=== PATIENT | male | born 1930 | race Caucasian/White ===

== ENCOUNTER 2017-11-21 12:27 | Emergency (ER) | payer MEDICARE ==
--- NOTE | 2017-11-21 12:46 | UC ---
Respiratory Complaint HPI - HPI Summary HPI Summary: 87 yo male presents accompanied by . Pt is a poor historian, thus provides the majority of the history. 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 Over the last 2 weeks she has been having to have pt wear depends because he is urinating a lot more frequently and will wet himself. Last night pt became "confused" - had to help him around the house and he would forget where he was going. Decreased appetite the last 2 days. Last night says his O2 sat was 88%. She says he has had a mild cough and cold "symptoms" for about a week. PMHx significant for CHF, afib , pacemaker, but no known hx of lung disease. Denies fever, chills, SOB, chest pain, abdominal pain, n/v. - History of Current Complaint Stated Complaint: LOW OXYGEN LEVEL Time Seen by Provider: 11/21/17 12:30 Hx Obtained From: Patient Severity Currently: None Character: Cough: Nonproductive - Allergies/Home Medications Allergies/Adverse Reactions: Allergies Allergy/AdvReac Type Severity Reaction Status Date / Time CONCH AdvReac Severe DIARRHEA, Uncoded 11/21/17 12:39 VOMITING Home Medications: Home Medications Apixaban* [Eliquis*] 5 mg PO DAILY 11/21/17 [History Confirmed 11/21/17] Calcium Carbonate CHEW TAB* [Tums*] 500 mg PO DAILY 11/21/17 [History Confirmed 11/21/17] Cholecalciferol (Vitamin D3) [Vitamin D3] 1,000 unit PO DAILY 11/21/17 [History Confirmed 11/21/17] Furosemide TAB* [Lasix TAB*] 20 mg PO DAILY 11/21/17 [History Confirmed 11/21/17 ] Polyethylene Glycol 3350 [Miralax] 17 gm PO DAILY 11/21/17 [History Confirmed ] Potassium Gluconate [Potassium] 600 mg PO DAILY 11/21/17 [History Confirmed ] Tamsulosin CAP* [Flomax CAP*] 0.4 mg PO DAILY 11/21/17 [History Confirmed ] Triamcinolone 0.025% OINT * 1 applic TOPICAL BID PRN 11/21/17 [History Confirmed 11/21/17] fentaNYL [Duragesic] 50 mcg TD EVERY OTHER DAY 11/21/17 [History Confirmed 11/21] raNITIdine HCl [Zantac 75] 150 mg PO DAILY 11/21/17 [History Confirmed 11/21/17] PMH/Surg Hx/FS Hx/Imm Hx - Additional Past Medical History Additional PMH: BPH Cardiovascular History: Cardiac Disease, Pacemaker/ICD, Atrial Fibrillation - Surgical History Surgical History: Yes Surgery Procedure, Year, and Place: YULI-LAMINECTOMY LOW BACK (1950s), APPENDECTOMY, TONSILLECTOMY, pacer - Family History Known Family History: Positive: Cardiac Disease, Hypertension - Social History Occupation: Retired Lives: With Family Alcohol Use: Rare Substance Use Type: None Type: Cigarettes Amount Used/How Often: Quit 25 years ago, 1 pack/day Length of Time of Smoking/Using Tobacco: 40 years Have You Smoked in the Last Year: No - Immunization History Most Recent Influenza Vaccination: Fall 2012 Most Recent Tetanus Shot: within last 5 years Most Recent Pneumonia Vaccination: Received after 63 Review of Systems Constitutional: Other - Confusion/AMS Skin: Negative Eyes: Negative ENT: Negative Respiratory: Cough Cardiovascular: Negative Gastrointestinal: Negative Genitourinary: Frequency, Urgency Neurovascular: Negative Neurological: Negative Psychological: Negative All Other Systems Reviewed And Are Negative: Yes Physical Exam - Summary Physical Exam Summary: GENERAL: NAD. WDWN. No pain distress. SKIN: No rashes, sores, lesions, or open wounds. HEENT: Head: AT/NC Eyes: EOM intact. Conjunctiva clear without inflammation or discharge. Ears: Hearing grossly normal. TMs intact, no bulging, erythema, or edema. Nose: Nasal mucosa pink and moist. NTTP maxillary and frontal sinus. Throat: Posterior oropharynx without exudates, erythema, or tonsillar enlargement. Uvula midline. NECK: Supple. Nontender. No lymphadenopathy. CHEST: Decreased breath sounds throughout. No accessory muscle use. Breathing comfortably and in no distress. CV: Pulses intact. Brisk cap refill. MSK: FROM B/L UEs and LEs with symmetric strength. NEURO: Alert. Repeats himself often. Difficulty comprehending simple instructions or explanations - turns to for help. [id number] are intact. Gait with normal base. Normal speech. No facial drooping. PSYCH: Age appropriate behavior. Triage Information Reviewed: Yes Respiratory Course/Dx - Course Course Of Treatment: CXR: IMPRESSION: HYPERINFLATION, CONSISTENT WITH COPD. NO ACTIVE CARDIOPULMONARY DISEASE. UA: With trace protein. EKG: Paced rhythm at 75bpm. Afib/flutter. No change from previous in [address] Taylor. On initial presentation pt had an O2% of 87% and was comfortably breathing. He was placed on 2L O2 NC and O2% increased to 96%. Pt felt no different and had no change in mental status. When taken off O2 his % dropped back to 87%. No CT available this afternoon at . Given his AMS without identifiable cause - I strongly advised pt and to go to the ED for further evaluation. I suggested that they go by ambulance, but she and patient refused - she agreed to go and will drive him. - Differential Dx/Diagnosis Provider Diagnoses: Altered mental status. Urinary frequency. Hypoxia Discharge - Sign-Out/Discharge Documenting (check all that apply): Discharge/Admit/Transfer - Discharge Plan Condition: Stable Disposition: HOME Referrals: Lyudmila Chen MD [Primary Care Provider] - Additional Instructions: Please go to the ER for further evaluation of your low oxygen level. At urgent care: You had trace protein in your urine CXR normal EKG stable paced rhythm with no changes compared to previous 2008 - Billing Disposition and Condition Condition: STABLE Disposition: HOME
[2017-11-21 12:54] VITALS: BP 109/69
--- NOTE | 2017-11-21 13:43 | RAD ---
HISTORY: Shortness of breath COMPARISONS: December 13, 2004 VIEWS: 4: Frontal dual-energy and lateral views of the chest. FINDINGS: CARDIOMEDIASTINAL SILHOUETTE: The cardiomediastinal silhouette is normal. AGUSTIN: The agustin are normal. PLEURA: The costophrenic angles are sharp. No pleural abnormalities are noted. LUNG PARENCHYMA: There is hyperinflation with flattening of the diaphragm and expansion of the AP diameter of the chest. ABDOMEN: The upper abdomen is clear. There is no subphrenic gas. BONES AND SOFT TISSUES: There is diffuse osteopenia. There are multiple chronic compression deformities of the thoracic spine. OTHER: A left-sided pacemaker is noted. IMPRESSION: HYPERINFLATION, CONSISTENT WITH COPD. NO ACTIVE CARDIOPULMONARY DISEASE.
== END 2017-11-21 14:40 | disposition home or self-care (01) ==
LOC: UCEAST 12:27
DX: R41.82 Altered mental status, unspecified (principal); R35.0 Frequency of micturition; R09.02 Hypoxemia; N40.0 Benign prostatic hyperplasia without lower urinary tract symptoms; I51.9 Heart disease, unspecified; I48.91 Unspecified atrial fibrillation; Z79.01 Long term (current) use of anticoagulants; Z95.810 Presence of automatic (implantable) cardiac defibrillator; Z87.891 Personal history of nicotine dependence
CPT/HCPCS: 71046; 81003; 93005; 99212; G0463

== ENCOUNTER 2017-11-22 20:02 | Inpatient (IN) | payer MEDICARE ==
[2017-11-22] MEDS ORDERED: NS 0.9% 1000 ML* 1,000 ML IV ONE ×2 (20:09→22:00)
--- NOTE | 2017-11-22 20:30 | RAD ---
Indication: Increased weakness more on LEFT side. Increased shortness of breath when walking. Comparison: December 02, 2013 CT. Technique: Noncontrast CT vertex of skull through foramen magnum. Report: Moderately severe prominence of the cerebral sulci and proportional enlargement of the ventricles. Moderate prominence of the cerebellar fissures. Unremarkable basal cisterns. Perez cisterna magna noted without change or concern. Negative for beach matter white matter obscuration, intra or extra-axial hemorrhage, or mass effect. Unremarkable orbital contents. Negative for calvarial fracture or suspicious focal osseous lesion. Grossly clear visualized paranasal sinuses and mastoid air spaces. Negative for scalp hematoma. IMPRESSION: 1. No acute intracranial process evident. 2. Cerebral and cerebellar involutional change with interval progression compared with the 2013 exam.
[2017-11-22 20:38] LABS: ABS Basophils 0 10^3/ul (0-0.2); ABS Eosinophils 0 10^3/ul (0-0.6); ABS Lymphocytes 0.5 10^3/ul (1.0-4.8); ABS Monocytes 0.7 10^3/ul (0-0.8); ABS Neutrophils 6.9 10^3/ul (1.5-7.7); ABS Nucleated RBC 0 10^3/ul; Eosinophil % 0.1 % (0-6); Hematocrit 36 % (42-52); Hemoglobin 12.4 g/dl (14.0-18.0); Mean Corpuscular HGB Conc 34 g/dl (31-36); Mean Corpuscular Hemoglobin 29 pg (27-31); Mean Corpuscular Volume 86 fL (80-94); Mean Platelet Volume 9.4 um3 (7.4-10.4); Nucleated Red Blood Cells % 0.1; Platelet Count 148 10^3/ul (150-450); Red Blood Count 4.23 10^6/ul (4.0-5.4); Red Cell Distribution Width 15 % (10.5-15); White Blood Count 8.2 10^3/ul (3.5-10.8)
[2017-11-22 20:46] LABS: INR 1.41 (0.77-1.02)
[2017-11-22 20:57] LABS: EGFR Non-African American 74.6 (>60)
--- NOTE | 2017-11-22 21:19 | RAD ---
Indication: Neurological changes, shortness of breath, weakness. Former tobacco use. Cardiac disease. Comparison: November 21, 2017 Technique: Upright AP 2046 hours Report: Patchy airspace consolidation at the RIGHT lung base increased over the exam of one day prior. Diffuse prominence of the interstitial markings. Grossly clear pleural spaces. Negative for pneumothorax. Mild cardiomegaly. RIGHT atrial and RIGHT ventricular level pacemaker leads. Prominent central pulmonary vasculature with peripheral attenuation. IMPRESSION: 1. Stigmata of chronic obstructive pulmonary disease and probable pulmonary arterial hypertension. Basilar honeycombing/interstitial fibrosis evident on January 12, [address] 2. New airspace consolidation at the RIGHT lung base compared with the exam one day prior is suspicious for inflammatory infiltrate.
[2017-11-22] MEDS ORDERED: Levofloxacin 750 MG IVPREMIX(* 750 MG/150 ML BAG IVPB ONE (21:28)
[2017-11-22] MEDS ORDERED: Acetaminophen TAB* 325 MG PO PRN (21:55)
[2017-11-22] MEDS ORDERED: Albuterol 2.5 MG/3 ML NEB.SOL* (0.083%) INH PRN (21:55)
[2017-11-22] MEDS: Apixaban* 5 MG TAB PO SCH (22:36)
[2017-11-22 22:39] LABS: Urine Appearance Clear; Urine Blood 1+ (Negative); Urine Color Yellow; Urine Ketones Negative (Negative); Urine Protein Negative (Negative); Urine Specific Gravity 1.019 (1.010-1.030); Urine Urobilinogen Negative (Negative)
--- NOTE | 2017-11-23 00:06 | ED ---
Tab Gomes Jennifer, scribed for Mateo Sr MD on 11/22/17 at 2104 . Neurological HPI - HPI Summary HPI Summary: The patient is an 87 year old male arriving by EMS with increased weakness over one week. The patient denies chest pain, SOB, headache. He has difficulty following commands in the ED. Patient has hearing aids. LEVEL 5 CAVEAT: HPI LIMITED DUE TO AMS. - History of Current Complaint Chief Complaint: EDWeakness Stated Complaint: WEAKNESS Time Seen by Provider: 11/22/17 20:09 Hx Obtained From: EMS Hx From Patient Unobtainable Due To: Altered Mental Status Onset/Duration: Started weeks ago - one week, Still Present Onset Severity: Mild Current Severity: Mild Pain Intensity: 2 Pain Scale Used: 0-10 Numeric Character: Other: - weakness, difficulty following commands. NEGATIVE: chest pain, SOB, headache Associated Signs and Symptoms: Positive: Weakness. Negative: Headache, Chest Pain, Shortness of Breath - Allergy/Home Medications Allergies/Adverse Reactions: Allergies Allergy/AdvReac Type Severity Reaction Status Date / Time No Known Drug Allergies Allergy See Comment Verified 11/22/17 22:41 CONCH AdvReac Severe DIARRHEA, Uncoded 11/21/17 12:39 VOMITING Home Medications: Home Medications Apixaban* [Eliquis*] 5 mg PO BID 11/22/17 [History Confirmed 11/22/17] Cholecalciferol (Vitamin D3) [Vitamin D3] 1,000 unit PO DAILY 11/22/17 [History Confirmed 11/22/17] Cyanocobalamin TAB* [Vitamin B12 TAB*] 1,000 mcg PO DAILY 11/22/17 [History Confirmed 11/22/17] Erythromycin OPTH OINT* [Erythromycin 0.5% OPTH OINT*] 1 applic BOTH EYES BEDTIME 11/22/17 [History Confirmed 11/22/17] LORazepam TAB(*) [Ativan 0.5 MG TAB (*)] 0.5 mg PO Q6H PRN 11/22/17 [History Confirmed 11/22/17] Polyethylene Glycol 3350* [Miralax*] 17 gm PO DAILY 11/22/17 [History Confirmed 11/22/17] Potassium Chlor TAB* [Klor Con ER TAB*] 20 meq PO DAILY PRN 11/22/17 [History Confirmed 11/22/17] Ranitidine TAB (NF) [Zantac TAB (NF)] 150 mg PO QAM 11/22/17 [History Confirmed 11/22/17] Sertraline* [Zoloft*] 25 mg PO QAM 11/22/17 [History Confirmed 11/22/17] Spironolactone/HCTZ 25-25 MG* [Aldactazide 25-25*] 1 tab PO MOWETHFRSA 11/22/17 [History Confirmed 11/22/17] Triamcinolone 0.1% OINT(NF) [Kenolog 0.1% OINT(NF)] 1 applic TOPICAL BID PRN [History Confirmed 11/22/17] fentaNYL PATCH 50 MCG/HR* [Duragesic PATCH 50 Mcg/Hr*] 50 mcg TRANSDERM EVERY OTHER DAY 11/22/17 [History Confirmed 11/22/17] traZODone TAB* [Desyrel TAB*] 75 mg PO BEDTIME 11/22/17 [History Confirmed 11/22] PMH/Surg Hx/FS Hx/Imm Hx Endocrine/Hematology History: Denies: Hx Diabetes Cardiovascular History: Reports: Hx Congestive Heart Failure, Hx Hypercholesterolemia, Hx Hypertension, Hx Pacemaker/ICD, Other Cardiovascular Problems/Disorders - ,chf,pacer, 3rd degree heart block Respiratory History: Reports: Hx Chronic Obstructive Pulmonary Disease (COPD) GI History: Reports: Hx Gastroesophageal Reflux Disease Musculoskeletal History: Reports: Hx Arthritis, Hx Osteoporosis, Other Musculoskeletal History - osteoporosis , hemilaminectomy Sensory History: Reports: Hx Contacts or Glasses, Hx Hearing Aid Opthamlomology History: Reports: Hx Contacts or Glasses - Cancer History Cancer Type, Location and Year: "skin cancer" on top of head, removed 2013 - Surgical History Surgery Procedure, Year, and Place: YULI-LAMINECTOMY LOW BACK (1950s), APPENDECTOMY, TONSILLECTOMY, pacer Infectious Disease History: No Infectious Disease History: Reports: Hx Hepatitis Denies: Traveled Outside the [place] in Last 30 Days - Family History Known Family History: Positive: Cardiac Disease, Hypertension - Social History Alcohol Use: None Substance Use Type: Reports: None Smoking Status (MU): Former Smoker Type: Cigarettes Amount Used/How Often: Quit 25 years ago, 1 pack/day Length of Time of Smoking/Using Tobacco: 40 years Have You Smoked in the Last Year: No Review of Systems Negative: Chest Pain Negative: Shortness Of Breath Positive: Weakness. Negative: Headache All Other Systems Reviewed And Are Negative: Yes Physical Exam - Summary Physical Exam Summary: Appearance: Well appearing, no pain distress Skin: warm, dry, reflects adequate perfusion Head/face: normal Eyes: EOMI, ALY ENT: Hard of hearing, ears have hearing aids Neck: supple, non-tender Respiratory: CTA, breath sounds present Cardiovascular: Pacemaker in left chest, RRR, pulses symmetrical Abdomen: non-tender, soft Bowel Sounds: present Musculoskeletal: normal, strength/ROM intact Neuro: Required repetitive prompting, little drowsy, left leg weakness with drift, left sided neglect, sensory motor intact, A&Ox3 Triage Information Reviewed: Yes Vital Signs On Initial Exam: Initial Vitals Temp Pulse Resp BP Pulse Ox 99.3 F 120 16 140/98 90 11/22/17 20:17 11/22/17 20:17 11/22/17 20:17 11/22/17 20:17 11/22/17 20:17 Vital Signs Reviewed: Yes Diagnostics - Vital Signs Vital Signs Temp Pulse Resp BP Pulse Ox 11/22/17 20:23 24 140/98 11/22/17 20:20 32 11/22/17 20:17 99.3 F 120 16 140/98 90 - Laboratory Lab Results: Lab Results 11/22/17 11/22/17 11/22/17 Range/Units 20:27 20:27 20:27 WBC 8.2 (3.5-10.8) 10^3/ul RBC 4.23 (4.0-5.4) 10^6/ul Hgb 12.4 L (14.0-18.0) g/dl Hct 36 L (42-52) % MCV 86 (80-94) fL MCH 29 (27-31) pg MCHC 34 (31-36) g/dl RDW 15 (10.5-15) % Plt Count 148 L (150-450) 10^3/ul MPV 9.4 (7.4-10.4) um3 Neut % (Auto) 85.0 H (38-83) % Lymph % (Auto) 6.0 L (25-47) % [place] % (Auto) 8.6 H (0-7) % Eos % (Auto) 0.1 (0-6) % Baso % (Auto) 0.3 (0-2) % Absolute Neuts (auto) 6.9 (1.5-7.7) 10^3/ul Absolute Lymphs (auto) 0.5 L (1.0-4.8) 10^3/ul Absolute Monos (auto) 0.7 (0-0.8) 10^3/ul Absolute Eos (auto) 0 (0-0.6) 10^3/ul Absolute Basos (auto) 0 (0-0.2) 10^3/ul Absolute Nucleated RBC 0 10^3/ul Nucleated RBC % 0.1 INR (Anticoag Therapy) 1.41 H (0.77-1.02) APTT 33.2 (26.0-36.3) seconds Sodium 131 L (139-145) mmol/L Potassium 4.2 (3.5-5.0) mmol/L Chloride 96 L (101-111) mmol/L Carbon Dioxide 29 (22-32) mmol/L Anion Gap 6 (2-11) mmol/L BUN 29 H (6-24) mg/dL Creatinine 0.95 (0.67-1.17) mg/dL Est GFR ( Amer) 96.0 (>60) Est GFR (Non-Af Amer) 74.6 (>60) BUN/Creatinine Ratio 30.5 H (8-20) Glucose 138 H (70-100) mg/dL Lactic Acid (0.5-2.0) mmol/L Calcium 9.0 (8.6-10.3) mg/dL Total Bilirubin 0.70 (0.2-1.0) mg/dL AST 15 (13-39) U/L ALT 12 (7-52) U/L Alkaline Phosphatase 53 (34-104) U/L Troponin I 0.03 (<0.04) ng/mL Total Protein 7.1 (6.4-8.9) g/dL Albumin 3.6 (3.2-5.2) g/dL Globulin 3.5 (2-4) g/dL Albumin/Globulin Ratio 1.0 (1-3) Triglycerides 56 mg/dL Cholesterol 127 mg/dL LDL Cholesterol 61 mg/dL HDL Cholesterol 54.7 mg/dL Blood Type Antibody Screen 11/22/17 11/22/17 Range/Units 20:27 20:27 WBC (3.5-10.8) 10^3/ul RBC (4.0-5.4) 10^6/ul Hgb (14.0-18.0) g/dl Hct (42-52) % MCV (80-94) fL MCH (27-31) pg MCHC (31-36) g/dl RDW (10.5-15) % Plt Count (150-450) 10^3/ul MPV (7.4-10.4) um3 Neut % (Auto) (38-83) % Lymph % (Auto) (25-47) % [place] % (Auto) (0-7) % Eos % (Auto) (0-6) % Baso % (Auto) (0-2) % Absolute Neuts (auto) (1.5-7.7) 10^3/ul Absolute Lymphs (auto) (1.0-4.8) 10^3/ul Absolute Monos (auto) (0-0.8) 10^3/ul Absolute Eos (auto) (0-0.6) 10^3/ul Absolute Basos (auto) (0-0.2) 10^3/ul Absolute Nucleated RBC 10^3/ul Nucleated RBC % INR (Anticoag Therapy) (0.77-1.02) APTT (26.0-36.3) seconds Sodium (139-145) mmol/L Potassium (3.5-5.0) mmol/L Chloride (101-111) mmol/L Carbon Dioxide (22-32) mmol/L Anion Gap (2-11) mmol/L BUN (6-24) mg/dL Creatinine (0.67-1.17) mg/dL Est GFR ( Amer) (>60) Est GFR (Non-Af Amer) (>60) BUN/Creatinine Ratio (8-20) Glucose (70-100) mg/dL Lactic Acid 1.1 (0.5-2.0) mmol/L Calcium (8.6-10.3) mg/dL Total Bilirubin (0.2-1.0) mg/dL AST (13-39) U/L ALT (7-52) U/L Alkaline Phosphatase (34-104) U/L Troponin I (<0.04) ng/mL Total Protein (6.4-8.9) g/dL Albumin (3.2-5.2) g/dL Globulin (2-4) g/dL Albumin/Globulin Ratio (1-3) Triglycerides mg/dL Cholesterol mg/dL LDL Cholesterol mg/dL HDL Cholesterol mg/dL Blood Type Pending Antibody Screen Pending Result Diagrams: 11/22/17 20:27 11/22/17 20:27 Lab Statement: Any lab studies that have been ordered have been reviewed, and results considered in the medical decision making process. - Radiology CXR Xray Interpretation: Positive (See Comments) - 1. Stigmata of chronic obstructive pulmonary disease and probable pulmonary arterial hypertension. Basilar honeycombing/interstitial fibrosis evident on January 12, [address] 2. New airspace consolidation at the RIGHT lung base compared with the exam one day prior is suspicious for inflammatory infiltrate. Dr. Sr has reviewed this report. Radiology Interpretation Completed By: Radiologist - CT Brain CT CT Interpretation: No Acute Changes - 1. No acute intracranial process evident. 2. Cerebral and cerebellar involutional change with interval progression compared with the [address] Sr has reviewed this report. 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-Paretic Hand: Both Correctly Best Gaze (Only Horizontal Eye Movement): Normal Visual Field Testing: No Visual Loss Facial Paresis-Pt to Smile & Close Eyes or Grimace Symmetry: Normal/Symmetrical Motor Function - Right Arm: No Drift-Holds 10 Seconds Motor Function - Left Arm: No Drift-Holds 10 Seconds Motor Function - Right Leg: No Drift-Holds 10 Seconds Motor Function - Left Leg: Drifts LT 10 seconds Limb Ataxia-Must be out of Proportion to Weakness Present: Absent Sensory (Use Pinprick to Test Arms/Legs/Trunk/Face): Normal Best Language (Describe Picture, Name Items): No Aphasia Dysarthria (Read Several Words): Normal Extinction and Inattention: Inattention Total Score: 4 Re-Evaluation - Re-Evaluation First Eval Re-Evaluation Time: 21:39 Change: Unchanged Comment: Upon re-examination, patient has right basilar crackles. He is breathing comfortably. Patient reports no abdominal pain. Course/Dx - Course Course Of Treatment: Patient with multiple vague symptoms. He presented as possible stroke from EMS. He had no definite stroke syndrome but relative generalized weakness. There may be some focality on the left side but really this appears to be something else. He was noted to have crackles on his lung exam. Chest x-ray indicated significant pneumonia is developed over the last day. He did have chest x-ray performed at urgent care yesterday which did not show the infiltrate that he has today. IV Levaquin and fluids were given. His alteration of mental status appears to be related to infection associated delirium rather than any type of stroke syndrome. Hospitalist was contacted and evaluated the patient at the bedside. They will admit for further evaluation and treatment. - Differential Dx Differential Diagnoses Neuro: Positive: Cerebrovascular Accident, Hemorrhage, Hypertension, Hypoxia, Metabolic Abnormality, Metastatic Disease, Transient Ischemic Attack, Other - Infection/sepsis with either pneumonia or UTI - Diagnoses Provider Diagnoses: Right lower lobe pneumonia, Delirium, Generalized weakness - Physician Notifications Discussed Care Of Patient With: Demario Rubin Time Discussed With Above Provider: 21:15 Instructed by Provider To: Admit As Inpatient - Critical Care Time Critical Care Time: 30-74 min - Critical care time of 30 minutes is exclusive of separately billable procedures. Discharge - Sign-Out/Discharge Documenting (check all that apply): Discharge/Admit/Transfer - Discharge Plan Condition: Fair Disposition: ADMITTED TO [facility] - Billing Disposition and Condition Condition: FAIR Disposition: [facility] The documentation as recorded by the Tab pitts Jennifer accurately reflects the service I personally performed and the decisions made by me, Mateo Sr MD.
[2017-11-23] MEDS: Albuterol/Ipratropium NEB.SOL* Albuterol 2.5 MG/Ipratropium 0.5 MG 3 ML INH SCH ×4 (00:11→11:35)
--- NOTE | 2017-11-23 03:35 | HP ---
CC: Dr. Chen * HISTORY AND PHYSICAL: DATE OF ADMISSION: 11/22/17 PRIMARY CARE PROVIDER: Dr. Chen. ATTENDING PHYSICIAN WHILE IN THE HOSPITAL: Elda Carlisle DO * (report dictated by Demario Rubin NP). CHIEF COMPLAINT: 1. Cough. 2. Weakness. 3. Not feeling well. HISTORY OF PRESENTING ILLNESS: Mr. 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 His primary user acceptance tester is Dr. Agarwal. He has a history of BPH and COPD as well. He is coming into our ER today. According to the , she was away for about a week on vacation and when she came back, she came down with a cold about a week ago. She got over, her was exposed and she has noted that over the last week the patient has been having increasing weakness, decreased appetite, not feeling well. He has had a cough that has really not been productive, and he sounded raspy. She was getting concerned because she was noticing that he was having a progressive decline over the last week. He got really bad on Monday and [facility], was evaluated there, and was sent home. She was concerned. She has a pulse oximeter at home as well, it was noted to be 88% but at [facility], she said his oxygen saturations remained in the 90s, and he seemed to be doing better. He did better on Monday. Monday night , he was again pretty weak and lethargic. She was trying to get into Dr. Chen 's office; however, he perked up again until this morning but then again this evening and this afternoon he had decline again and she was getting concerned because he just was not getting better, his appetite was not improving, he was coughing, he was looking to be a little bit short of breath with exertion, and she had the patient brought in. At this point, he is really not able to give much history because of his underlying weakness. He has also been confused as well. He came into our ER today. He was evaluated. There has been no report of chest pain or shortness of breath. No reports of vomiting or diarrhea. No reports of fever. He was evaluated here in our ER. It was noted that he had pneumonia and because of this we were asked to evaluate for admission. PAST MEDICAL HISTORY: Significant for: 1. Peptic ulcer disease. 2. Hepatitis. 3. Osteoarthritis. 4. Osteoporosis. 5. Chronic pain. 6. History of AFib, aflutter. 7. History of CHF. 8. BPH. 9. COPD. 10. He has also had an L1 vertebral fracture. PAST SURGICAL HISTORY: 1. The patient has had a tonsillectomy. 2. He has had an L5-S1 spinal fusion. 3. Pacemaker. 4. Appendectomy. HOME MEDICATIONS: Include: 1. Erythromycin 1 application both eyes at bedtime. 2. Triamcinolone cream 1 application topical b.i.d. as needed. 3. Ativan 0.5 mg every 6 hours as needed. 4. Potassium 20 mEq p.o. daily as needed. 5. Lasix 20 mg p.o. daily as needed. 6. Trazodone 75 mg at bedtime. 7. B12, 1000 mcg p.o. daily. 8. Tums 500 mg daily. 9. Spironolactone/hydrochlorothiazide 1 tablet p.o. Monday, Monday, , Monday, and Monday. 10. Zoloft 25 mg daily. 11. Apixaban 5 mg p.o. b.i.d. 12. Zantac 150 mg p.o. q.a.m. 13. Flomax 0.4 mg p.o. daily. 14. MiraLAX 17 g p.o. daily. 15. Fentanyl patch 50 mcg transdermally every other day. 16. Vitamin D3, 1000 units p.o. daily. ALLERGIES TO MEDICATIONS: Include none. He is allergic to conch. FAMILY HISTORY: Mother had a history of CHF at the age of 99. Father of an ME. SOCIAL HISTORY: Former smoker. Does not drink alcohol. Surrogate decision maker is his , Leonor. REVIEW OF SYSTEMS: Again, there is no documented fever. No significant weight change was noted. No double vision. No ear discharge. There is no rhinorrhea. There is no sore throat. No thyroid enlargement. There is no report of chest pain. There is no orthopnea. There is no nocturnal dyspnea. There is admission to cough, dyspnea on exertion. There was no abdominal pain. There was no nausea, no vomiting. No dysuria, no frequency. No seizure, no loss of consciousness. No pruritus and no skin ulcerations. Review of 14 systems completed, all others were negative. PHYSICAL EXAMINATION GENERAL: At this time, Mr. Wood is an 87-year-old male patient; he appears to be chronically ill appearing. He is sitting in the ED stretcher. He does not appear to be in any acute distress. VITAL SIGNS: Blood pressure 138/76, pulse 75, respirations 14, O2 sat 92% on 2 L, and his temperature is 99.3. HEENT: Head is atraumatic and normocephalic. Eyes: Sclerae are anicteric and not pale. Throat: Oral mucosa appears to be dry. No oropharyngeal erythema. NECK: Supple. LUNGS: He had rhonchi in the right base. He also had some crackles in the left. He had equal diaphragmatic expansion. There was no wheezing. HEART: Sounds S1, S2. He has regular rate and rhythm. No murmurs, rubs, or gallops at this point. ABDOMEN: Soft, flat, nontender. Bowel sounds were present. EXTREMITIES: Pulses were 2+ throughout. No peripheral edema. He is moving all 4 extremities with 5/5 strength. NEUROLOGICAL: It is difficult to exam because he is very hard of hearing. He does awaken to his name. He knows his name. His tongue was midline. His lusterer were equal. He knows he is in the hospital and he knows the month. He had no gross focal deficits. SKIN: Intact. LABORATORY DATA/DIAGNOSTIC STUDIES: Today, WBC of 8.2, RBC of 4.23, hemoglobin 12.4, hematocrit 36, and a platelet count of 148,000. INR 1.41, PTT of 33.2. Sodium 131, potassium 4.2, chloride of 96, bicarb 29, BUN 29, creatinine 0.95, glucose 138, lactate 1.1, calcium 9.0. Total bili 0.7. AST 15 , ALT 12, alk phos 53. Troponin 0.03. BNP 156. Albumin 3.6. Urine is pending. He did have a chest x-ray obtained today, under my review it looks like he has infiltrate in the right base, Radiology read this as stigmata of COPD and probable pulmonary arterial hypertension. Basilar honeycombing, interstitial fibrosis evident on 01/12/[address] He has new airspace consolidation on the right lung base compared with exam 1 day prior. It is suspicious for an inflammatory infiltrate. There was a brain CT obtained today as well, showed no acute intracranial process evident, cerebral and cerebellar involutional change with interval progression compared with the 2014 exam. Also had an EKG obtained today, which did show it looks like aflutter with a paced rhythm at a rate of 60, which he does have a history of, it is reviewed with the previous EKG from 10 years ago, his rhythm then was paced but there was definitely no flutter waves. Old medical records were reviewed. ASSESSMENT AND PLAN: Mr. Wood is an 87-year-old male patient coming into the emergency department today with complaints of cough, not feeling well, and weakness, on evaluation it was felt that he needed to be admitted. He will be admitted under inpatient status for: 1. Pneumonia. At this point, he is not showing signs of sepsis. He is weak, which I think is being driven by the pneumonia. I am going to put him on Levaquin. Because of the history of chronic obstructive pulmonary disease, I am going to go ahead and put him on inhaled steroids. In addition to this, put him on nebulizers, flutter valve, aggressive antibiotic therapy. I will check Legionella and Strep pneumo antigen, aggressive pulmonary toileting. I will also check blood cultures and check his urine as well. Hydrate him with normal saline at 75 mL an hour because of his history of congestive heart failure and I normally would put him on steroids, but at this point I am going to hold off because I am worried about fluid retention and putting him into failure, so we will continue with just inhaled for now. 2. History of congestive heart failure. He does not appear to be in failure, appears to be dry. Hold his Lasix. We will be careful with fluids and diurese him as needed and continue medications as prescribed. I am going to try to get records from Cardiology to see what his EF is. 3. Peptic ulcer disease. Continue his medications as prescribed. 4. History of osteoporosis. Follow up with his primary care physician. 5. History of atrial fibrillation and aflutter. Continue medications as prescribed. At this point, it is stable, rate is at 75. 6. Chronic obstructive pulmonary disease. He will be placed on nebulizes, inhaled steroids, and antibiotics. 7. Benign prostatic hypertrophy. Continue with Flomax. 8. Chronic pain. Continue with fentanyl patch. 9. Arthritis. Again, fentanyl patch is being continued. 10. History of hepatitis C. Follow up with primary. 11. DVT prophylaxis. He is on apixaban. 12. Code status: He wishes to be a DNR. We will try to obtain the MOLST form ; if not, we may need to fill out a new one. 13. Fluids, electrolytes, and nutrition. He can have a heart healthy diet with Ensure t.i.d. TIME SPENT: On the admission was 60 minutes; greater than half the time was spent [id number] with the patient obtaining my history and physical; other half time was spent going over the plan of care with the patient and implementing the plan of care. I did discuss the plan of care with my attending, Dr. Carlisle; she is in agreement. DEMARIO RUBIN, RAYA [id number]/CPS #: [id number] FOSTER
--- NOTE | 2017-11-23 04:09 | PN ---
Hospitalist Progress Note Date of Service: 11/23/17 Cat called placed for hypoxia at 0340 Pt o2 sats 40 percent. On exam put cyanotic, confused, pt responsed to sternal rub immediately. Pt confuse to situation but know name and location and month. Pt denies chest pain or sob. On 10 l oxi mask sats 99 percent, bp 130/70 hr 90. Lungs with rohonchi in lower lobes. 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
[2017-11-23] MEDS ORDERED: Naloxone* 0.4 MG/ML 1 ML VIAL ONE (05:59)
[2017-11-23] MEDS ORDERED: Furosemide IV* 10 MG/ML VIAL (40 MG) ONE (06:02)
[2017-11-23] MEDS ORDERED: Haloperidol INJ IV/IM* 5 MG/ML AMP ONE (06:07)
[2017-11-23 06:09] LABS: ABS Basophils 0 10^3/ul (0-0.2); ABS Eosinophils 0 10^3/ul (0-0.6); ABS Monocytes 0.9 10^3/ul (0-0.8); ABS Neutrophils 8.7 10^3/ul (1.5-7.7); ABS Nucleated RBC 0 10^3/ul; Eosinophil % 0 % (0-6); Hematocrit 37 % (42-52); Hemoglobin 12.1 g/dl (14.0-18.0); Lymphocyte % 9.3 % (25-47); Mean Corpuscular HGB Conc 33 g/dl (31-36); Mean Corpuscular Hemoglobin 29 pg (27-31); Mean Corpuscular Volume 88 fL (80-94); Nucleated Red Blood Cells % 0; Platelet Count 144 10^3/ul (150-450); Red Blood Count 4.16 10^6/ul (4.0-5.4); Red Cell Distribution Width 15 % (10.5-15); White Blood Count 10.6 10^3/ul (3.5-10.8)
[2017-11-23 06:10] LABS: INR 1.78 (0.77-1.02)
[2017-11-23] MEDS ORDERED: Morphine VIAL* 4 MG/ML VIAL (1 ml vial) IV ONE ×3 (06:11→06:35)
[2017-11-23 06:18] LABS: EGFR Non-African American 104.5 (>60)
[2017-11-23] MEDS ORDERED: fentaNYL Patch Check Q Shift 1 NOTE SCH (07:00)
--- NOTE | 2017-11-23 07:27 | PN ---
Hospitalist Progress Note Date of Service: 11/23/17 Cat call placed at 600 this am for decreased AMS. Patient previously awake and alert and talking making needs known after first CAT call. This time patient unresponsive would not awaken to sternal rub at all. Agonal breathing noted. Rhonchi bilaterally. Concern for over sedation with fent patch that patient had on previously. Narcan given .4 mg. Upon receiving narcan patient extremely agitated restless but breathing much improved, patient given haldol and morphine 4 mg back to try and decrease his agitation, patient transferred to ICU, pt given 40 of lasix as well due to increase in rhonchi, breathing improving after this, at 700 patient agitation decreasing, becoming more lucid, updated, signed patient out to oncoming
[2017-11-23] MEDS: Mometasone/Formoter 200/5 MDI INH SCH ×2 (07:52→20:47)
--- NOTE | 2017-11-23 07:59 | RAD ---
INDICATION: Hypoxia. COMPARISON: November 22, 2017 TECHNIQUE: An AP portable view obtained at 0349 hours is submitted. FINDINGS: Bones/Soft Tissues: There are no acute bony findings. There is a right-sided cardiac pacemaker Cardiomediastinal: The correct silhouette is enlarged. Lungs: There is progressive infiltrate in right lung base. There is mild diffuse interstitial change. Pleura: There are small bilateral pleural effusions. Other: None IMPRESSION: CHRONIC INTERSTITIAL CHANGES. THERE MAY BE A COMPONENT OF INTERSTITIAL EDEMA WELL. THERE IS PROGRESSIVE INFILTRATIVE CHANGE IN RIGHT LUNG BASE. SUGGEST CONTINUED FOLLOW-UP.
[2017-11-23] MEDS: Tamsulosin CAP* 0.4 MG PO SCH (08:38)
[2017-11-23] MEDS: Famotidine TAB* 20 MG PO SCH (08:38)
[2017-11-23] MEDS: Polyethylene Glycol 3350* 17 GM PACKET PO SCH (08:38)
[2017-11-23] MEDS: Sertraline* 25 MG TAB PO SCH (08:38)
--- NOTE | 2017-11-23 08:59 | PN ---
Subjective Date of Service: 11/23/17 Interval History: Seen with daughter and at bedside Pt notes non productive cough but no SOB No chest pain No nausea Would like trotter catheter out Objective Active Medications: Acetaminophen (Tylenol Tab*) 650 mg PO Q4H PRN PRN Reason: FEVER/PAIN Albuterol (Ventolin 2.5 Mg/3 Ml Neb.Zoie*) 2.5 mg INH Q2H PRN PRN Reason: SOB/WHEEZING Albuterol/Ipratropium (Duoneb (Albuterol 2.5 Mg/Ipratropium 0.5 Mg)) 1 neb INH [id number] AWAKE [facility] Last Admin: 11/23/17 07:52 Dose: 1 neb Apixaban (Eliquis*) 5 mg PO BID [facility] Last Admin: 11/22/17 22:36 Dose: 5 mg Famotidine (Pepcid Tab*) 20 mg PO QAM [facility] PRN Reason: Protocol Last Admin: 11/23/17 08:38 Dose: 20 mg Ceftriaxone Sodium 1 gm/ (Sodium Chloride) 50 mls @ 200 mls/hr IVPB Q24H [facility] Azithromycin 500 mg/ Sodium (Chloride) 250 mls @ 250 mls/hr IVPB Q24H [facility] Stop: 11/24/17 11:59 Azithromycin 250 mg/ Sodium (Chloride) 250 mls @ 250 mls/hr IVPB Q24H [facility] Stop: 11/27/17 09:59 Mometasone Furoate/Formoterol Fumar (Dulera 200/5 Mdi*) 2 puff INH BID [facility] Last Admin: 11/23/17 07:52 Dose: Not Given Polyethylene Glycol/Electrolytes (Miralax*) 17 gm PO DAILY [facility] Last Admin: 11/23/17 08:38 Dose: 17 gm Sertraline HCl (Zoloft*) 25 mg PO QAM [facility] Last Admin: 11/23/17 08:38 Dose: 25 mg Tamsulosin HCl (Flomax Cap*) 0.4 mg PO DAILY [facility] Last Admin: 11/23/17 08:38 Dose: 0.4 mg Trazodone HCl (Desyrel Tab*) 75 mg PO BEDTIME [facility] Vital Signs - 8 hr 11/23/17 11/23/17 11/23/17 03:32 04:01 04:41 Temperature 97.8 F Pulse Rate 60 75 Respiratory 17 Rate Blood Pressure 139/50 129/60 (mmHg) O2 Sat by Pulse 100 98 91 Oximetry 11/23/17 11/23/17 11/23/17 05:05 05:19 06:11 Temperature 97.4 F Pulse Rate 59 75 Respiratory 19 18 28 Rate Blood Pressure 90/46 116/63 (mmHg) O2 Sat by Pulse 97 97 Oximetry 11/23/17 11/23/17 11/23/17 07:12 07:19 07:56 Temperature Pulse Rate 60 Respiratory 25 20 19 Rate Blood Pressure 96/61 (mmHg) O2 Sat by Pulse 95 Oximetry 11/23/17 11/23/17 08:00 08:36 Temperature 98.4 F Pulse Rate 60 Respiratory 20 Rate Blood Pressure 115/53 (mmHg) O2 Sat by Pulse 97 Oximetry Oxygen Devices in Use Now: Nasal Cannula - 4L Appearance: sitting up in bed, interactive, NAD Eyes: No Scleral Icterus, PERRLA Ears/Nose/Mouth/Throat: Clear Oropharnyx, - - dry MM Respiratory: Symmetrical Chest Expansion and Respiratory Effort, - - rhonchi right base up 1/2 that partially clear with cough Cardiovascular: RRR, - - 2/6 JAKE LUSB and RLSB Extremities: No Edema, No Clubbing, Cyanosis, - - warm Neurological: Alert and Oriented x 3, - - [id number] Result Diagrams: 11/23/17 05:57 11/23/17 05:57 Additional Lab and Data: Lab Results 11/22/17 11/22/17 11/22/17 Range/Units 20:27 20:27 20:27 WBC 8.2 (3.5-10.8) 10^3/ul RBC 4.23 (4.0-5.4) 10^6/ul Hgb 12.4 L (14.0-18.0) g/dl Hct 36 L (42-52) % MCV 86 (80-94) fL MCH 29 (27-31) pg MCHC 34 (31-36) g/dl RDW 15 (10.5-15) % Plt Count 148 L (150-450) 10^3/ul MPV 9.4 (7.4-10.4) um3 Neut % (Auto) 85.0 H (38-83) % Lymph % (Auto) 6.0 L (25-47) % Dickenson % (Auto) 8.6 H (0-7) % Eos % (Auto) 0.1 (0-6) % Baso % (Auto) 0.3 (0-2) % Absolute Neuts (auto) 6.9 (1.5-7.7) 10^3/ul Absolute Lymphs (auto) 0.5 L (1.0-4.8) 10^3/ul Absolute Monos (auto) 0.7 (0-0.8) 10^3/ul Absolute Eos (auto) 0 (0-0.6) 10^3/ul Absolute Basos (auto) 0 (0-0.2) 10^3/ul Absolute Nucleated RBC 0 10^3/ul Nucleated RBC % 0.1 INR (Anticoag Therapy) 1.41 H (0.77-1.02) APTT 33.2 (26.0-36.3) seconds Sodium 131 L (139-145) mmol/L Potassium 4.2 (3.5-5.0) mmol/L Chloride 96 L (101-111) mmol/L Carbon Dioxide 29 (22-32) mmol/L Anion Gap 6 (2-11) mmol/L BUN 29 H (6-24) mg/dL Creatinine 0.95 (0.67-1.17) mg/dL Est GFR ( Amer) 96.0 (>60) Est GFR (Non-Af Amer) 74.6 (>60) BUN/Creatinine Ratio 30.5 H (8-20) Glucose 138 H (70-100) mg/dL Lactic Acid (0.5-2.0) mmol/L Calcium 9.0 (8.6-10.3) mg/dL Total Bilirubin 0.70 (0.2-1.0) mg/dL AST 15 (13-39) U/L ALT 12 (7-52) U/L Alkaline Phosphatase 53 (34-104) U/L Troponin I 0.03 (<0.04) ng/mL Total Protein 7.1 (6.4-8.9) g/dL Albumin 3.6 (3.2-5.2) g/dL Globulin 3.5 (2-4) g/dL Albumin/Globulin Ratio 1.0 (1-3) Triglycerides 56 mg/dL Cholesterol 127 mg/dL LDL Cholesterol 61 mg/dL HDL Cholesterol 54.7 mg/dL Blood Type Antibody Screen 11/22/17 11/22/17 Range/Units 20:27 20:27 WBC (3.5-10.8) 10^3/ul RBC (4.0-5.4) 10^6/ul Hgb (14.0-18.0) g/dl Hct (42-52) % MCV (80-94) fL MCH (27-31) pg MCHC (31-36) g/dl RDW (10.5-15) % Plt Count (150-450) 10^3/ul MPV (7.4-10.4) um3 Neut % (Auto) (38-83) % Lymph % (Auto) (25-47) % Dickenson % (Auto) (0-7) % Eos % (Auto) (0-6) % Baso % (Auto) (0-2) % Absolute Neuts (auto) (1.5-7.7) 10^3/ul Absolute Lymphs (auto) (1.0-4.8) 10^3/ul Absolute Monos (auto) (0-0.8) 10^3/ul Absolute Eos (auto) (0-0.6) 10^3/ul Absolute Basos (auto) (0-0.2) 10^3/ul Absolute Nucleated RBC 10^3/ul Nucleated RBC % INR (Anticoag Therapy) (0.77-1.02) APTT (26.0-36.3) seconds Sodium (139-145) mmol/L Potassium (3.5-5.0) mmol/L Chloride (101-111) mmol/L Carbon Dioxide (22-32) mmol/L Anion Gap (2-11) mmol/L BUN (6-24) mg/dL Creatinine (0.67-1.17) mg/dL Est GFR ( Amer) (>60) Est GFR (Non-Af Amer) (>60) BUN/Creatinine Ratio (8-20) Glucose (70-100) mg/dL Lactic Acid 1.1 (0.5-2.0) mmol/L Calcium (8.6-10.3) mg/dL Total Bilirubin (0.2-1.0) mg/dL AST (13-39) U/L ALT (7-52) U/L Alkaline Phosphatase (34-104) U/L Troponin I (<0.04) ng/mL Total Protein (6.4-8.9) g/dL Albumin (3.2-5.2) g/dL Globulin (2-4) g/dL Albumin/Globulin Ratio (1-3) Triglycerides mg/dL Cholesterol mg/dL LDL Cholesterol mg/dL HDL Cholesterol mg/dL Blood Type Pending Antibody Screen Pending Microbiology and Other Data: Microbiology 11/22/17 22:18 Legionella Urinary Antigen - Final Urine Negative Legionella Antigen Streptococcus pneumoniae Ag Screen - Final Negative S. pneumo Antigen Assess/Plan/Problems-Billing Assessment: 87 yo M h/o afib on eliquis, chronic LBP on fentanyl patch, combine CHF p/w cough/weakness found with RLL PNA with first night complicated by hypoxic respiratory failure - Patient Problems (1) Acute respiratory failure with hypoxia Comment: Acute overnight in setting of hypoventilation Received narcan with good effect This AM awake and not withdrawing Will treat pain PRN until stable then consider restarting fentanyl patch ( currently nothing ordered) (2) Acute CHF Comment: hold fluid holding lasix with PNA - restart tomorrow when stable (3) Atrial fibrillation Comment: eliquis rate controlled on no meds (4) COPD (chronic obstructive pulmonary disease) Comment: no oral steroids at this point duonebs (5) Pneumonia Comment: change levaquin to CTX and azithro to avoid any increased delerium (6) Hypertension Comment: holding HCTZ/aldactone - restart when stable (7) DVT prophylaxis Current Visit: Yes Status: Acute Code(s): [id number] - SNOMED Code(s): 490058766 (8) DVT prophylaxis Comment: eliquis Status and Disposition: inpatient
[2017-11-23] MEDS: Apixaban* 5 MG TAB PO SCH ×2 (09:04→20:29)
[2017-11-23] MEDS ORDERED: cefTRIAXone(*) 1 GM in NS 0.9% 50 ML* 50 ML IVPB SCH (12:00)
[2017-11-23] MEDS ORDERED: Azithromycin IV(*) 500 MG in NS 0.9% 250 ML* 250 ML IVPB SCH (12:00)
[2017-11-23] MEDS: traZODone TAB* 50 MG TAB PO SCH (20:29)
[2017-11-23] MEDS ORDERED: Levofloxacin 750 MG IVPREMIX(* 750 MG/150 ML BAG IVPB SCH (21:00)
[2017-11-24] MEDS: traZODone TAB* 50 MG TAB PO SCH (00:15)
[2017-11-24] MEDS ORDERED: diPHENhydraMINE PO* 25 MG PO PRN (01:25)
[2017-11-24] MEDS ORDERED: Morphine VIAL* 4 MG/ML VIAL (1 ml vial) IV ONE ×3 (04:01→06:31)
[2017-11-24] MEDS ORDERED: fentaNYL PATCH 12 MCG/HR TRANSDERM SCH (06:00)
[2017-11-24] MEDS ORDERED: LORazepam INJ* 2 MG/ML 1 ML VIAL IV PUSH ONE (06:10)
[2017-11-24] MEDS ORDERED: Morphine INJ* 2 MG/ML 1 ML CARPUJECT IV ONE (06:11)
[2017-11-24] MEDS ORDERED: LORazepam INJ* 2 MG/ML 1 ML VIAL ONE (06:20)
[2017-11-24] MEDS ORDERED: fentaNYL Patch Check Q Shift 1 NOTE SCH ×2 (07:00→19:00)
[2017-11-24] MEDS: Mometasone/Formoter 200/5 MDI INH SCH (08:31)
[2017-11-24] MEDS ORDERED: Azithromycin IV(*) 250 MG in NS 0.9% 250 ML* 250 ML IVPB SCH (09:00)
[2017-11-24] MEDS ORDERED: fentaNYL PATCH 50 MCG/HR TRANSDERM SCH (09:00)
[2017-11-24] MEDS ORDERED: Azithromycin TAB* 250 MG PO SCH (10:00)
[2017-11-24] MEDS ORDERED: fentaNYL PATCH 25 MCG/HR TRANSDERM SCH ×2 (10:00→11:00)
--- NOTE | 2017-11-24 10:11 | PN ---
Subjective Date of Service: 11/24/17 Interval History: C/O frequent urge to void and to have BM but no actual diarrhea. Up frequently last night, present to help him go to the [place]. No cough, SOB. Objective Active Medications: Acetaminophen (Tylenol Tab*) 650 mg PO Q4H PRN PRN Reason: FEVER/PAIN Albuterol (Ventolin 2.5 Mg/3 Ml Neb.Zoie*) 2.5 mg INH Q2H PRN PRN Reason: SOB/WHEEZING Apixaban (Eliquis*) 5 mg PO BID [facility] Last Admin: 11/23/17 20:29 Dose: 5 mg Azithromycin (Zithromax Tab*) 250 mg PO DAILY [facility] Diphenhydramine HCl (Benadryl Po*) 25 mg PO BEDTIME PRN PRN Reason: SLEEP Last Admin: 11/24/17 01:33 Dose: 25 mg Famotidine (Pepcid Tab*) 20 mg PO QAM [facility] PRN Reason: Protocol Last Admin: 11/23/17 08:38 Dose: 20 mg Fentanyl (Duragesic Patch 25 Mcg/Hr*) 25 mcg TRANSDERM Q72H [facility] Azithromycin 500 mg/ Sodium (Chloride) 250 mls @ 250 mls/hr IVPB Q24H [facility] Stop: 11/24/17 11:59 Last Admin: 11/23/17 13:21 Dose: 250 mls/hr Polyethylene Glycol/Electrolytes (Miralax*) 17 gm PO DAILY [facility] Last Admin: 11/23/17 08:38 Dose: 17 gm Sertraline HCl (Zoloft*) 25 mg PO QAM [facility] Last Admin: 11/23/17 08:38 Dose: 25 mg Tamsulosin HCl (Flomax Cap*) 0.4 mg PO DAILY [facility] Last Admin: 11/23/17 08:38 Dose: 0.4 mg Trazodone HCl (Desyrel Tab*) 75 mg PO BEDTIME [facility] Last Admin: 11/24/17 00:15 Dose: 50 mg Vital Signs - 8 hr 11/24/17 11/24/17 11/24/17 03:53 04:12 04:16 Temperature Pulse Rate 60 Respiratory 16 18 18 Rate Blood Pressure 124/48 (mmHg) O2 Sat by Pulse 94 Oximetry 11/24/17 11/24/17 11/24/17 04:55 06:26 06:27 Temperature 97.9 F Pulse Rate Respiratory 18 16 Rate Blood Pressure (mmHg) O2 Sat by Pulse Oximetry 11/24/17 11/24/17 11/24/17 06:28 07:25 07:42 Temperature Pulse Rate Respiratory 18 16 16 Rate Blood Pressure (mmHg) O2 Sat by Pulse Oximetry 11/24/17 11/24/17 07:47 08:00 Temperature 97.3 F Pulse Rate 60 Respiratory 20 16 Rate Blood Pressure 137/50 (mmHg) O2 Sat by Pulse 96 Oximetry Oxygen Devices in Use Now: None Appearance: Alert, in a chair. Anxious but otherwise looks comfortable. No cough during my visit. Color pink on RA. Ears/Nose/Mouth/Throat: Clear Oropharnyx, Mucous Membranes Moist Neck: NL Appearance and Movements; NL JVP, No Thyroid Enlargement, Masses Respiratory: Symmetrical Chest Expansion and Respiratory Effort, Clear to Auscultation, Clear to Percussion Cardiovascular: NL Sounds; No Murmurs; No JVD, RRR, No Edema, - Extremities: No Edema, No Clubbing, Cyanosis Skin: No Rash or Ulcers, No Nodules or Sclerosis, - Neurological: Alert and Oriented x 3, NL Sensation - Knows his age, present month, name of the facility, town he lives in and the post office town. No tremor. Speech clear and fluent. Result Diagrams: 11/23/17 05:57 11/23/17 05:57 Additional Lab and Data: Lab Results 11/22/17 11/22/17 11/22/17 Range/Units 20:27 20:27 20:27 WBC 8.2 (3.5-10.8) 10^3/ul RBC 4.23 (4.0-5.4) 10^6/ul Hgb 12.4 L (14.0-18.0) g/dl Hct 36 L (42-52) % MCV 86 (80-94) fL MCH 29 (27-31) pg MCHC 34 (31-36) g/dl RDW 15 (10.5-15) % Plt Count 148 L (150-450) 10^3/ul MPV 9.4 (7.4-10.4) um3 Neut % (Auto) 85.0 H (38-83) % Lymph % (Auto) 6.0 L (25-47) % Mcdowell % (Auto) 8.6 H (0-7) % Eos % (Auto) 0.1 (0-6) % Baso % (Auto) 0.3 (0-2) % Absolute Neuts (auto) 6.9 (1.5-7.7) 10^3/ul Absolute Lymphs (auto) 0.5 L (1.0-4.8) 10^3/ul Absolute Monos (auto) 0.7 (0-0.8) 10^3/ul Absolute Eos (auto) 0 (0-0.6) 10^3/ul Absolute Basos (auto) 0 (0-0.2) 10^3/ul Absolute Nucleated RBC 0 10^3/ul Nucleated RBC % 0.1 INR (Anticoag Therapy) 1.41 H (0.77-1.02) APTT 33.2 (26.0-36.3) seconds Sodium 131 L (139-145) mmol/L Potassium 4.2 (3.5-5.0) mmol/L Chloride 96 L (101-111) mmol/L Carbon Dioxide 29 (22-32) mmol/L Anion Gap 6 (2-11) mmol/L BUN 29 H (6-24) mg/dL Creatinine 0.95 (0.67-1.17) mg/dL Est GFR ( Amer) 96.0 (>60) Est GFR (Non-Af Amer) 74.6 (>60) BUN/Creatinine Ratio 30.5 H (8-20) Glucose 138 H (70-100) mg/dL Lactic Acid (0.5-2.0) mmol/L Calcium 9.0 (8.6-10.3) mg/dL Total Bilirubin 0.70 (0.2-1.0) mg/dL AST 15 (13-39) U/L ALT 12 (7-52) U/L Alkaline Phosphatase 53 (34-104) U/L Troponin I 0.03 (<0.04) ng/mL Total Protein 7.1 (6.4-8.9) g/dL Albumin 3.6 (3.2-5.2) g/dL Globulin 3.5 (2-4) g/dL Albumin/Globulin Ratio 1.0 (1-3) Triglycerides 56 mg/dL Cholesterol 127 mg/dL LDL Cholesterol 61 mg/dL HDL Cholesterol 54.7 mg/dL Blood Type Antibody Screen 11/22/17 11/22/17 Range/Units 20:27 20:27 WBC (3.5-10.8) 10^3/ul RBC (4.0-5.4) 10^6/ul Hgb (14.0-18.0) g/dl Hct (42-52) % MCV (80-94) fL MCH (27-31) pg MCHC (31-36) g/dl RDW (10.5-15) % Plt Count (150-450) 10^3/ul MPV (7.4-10.4) um3 Neut % (Auto) (38-83) % Lymph % (Auto) (25-47) % Mcdowell % (Auto) (0-7) % Eos % (Auto) (0-6) % Baso % (Auto) (0-2) % Absolute Neuts (auto) (1.5-7.7) 10^3/ul Absolute Lymphs (auto) (1.0-4.8) 10^3/ul Absolute Monos (auto) (0-0.8) 10^3/ul Absolute Eos (auto) (0-0.6) 10^3/ul Absolute Basos (auto) (0-0.2) 10^3/ul Absolute Nucleated RBC 10^3/ul Nucleated RBC % INR (Anticoag Therapy) (0.77-1.02) APTT (26.0-36.3) seconds Sodium (139-145) mmol/L Potassium (3.5-5.0) mmol/L Chloride (101-111) mmol/L Carbon Dioxide (22-32) mmol/L Anion Gap (2-11) mmol/L BUN (6-24) mg/dL Creatinine (0.67-1.17) mg/dL Est GFR ( Amer) (>60) Est GFR (Non-Af Amer) (>60) BUN/Creatinine Ratio (8-20) Glucose (70-100) mg/dL Lactic Acid 1.1 (0.5-2.0) mmol/L Calcium (8.6-10.3) mg/dL Total Bilirubin (0.2-1.0) mg/dL AST (13-39) U/L ALT (7-52) U/L Alkaline Phosphatase (34-104) U/L Troponin I (<0.04) ng/mL Total Protein (6.4-8.9) g/dL Albumin (3.2-5.2) g/dL Globulin (2-4) g/dL Albumin/Globulin Ratio (1-3) Triglycerides mg/dL Cholesterol mg/dL LDL Cholesterol mg/dL HDL Cholesterol mg/dL Blood Type Pending Antibody Screen Pending Microbiology and Other Data: Microbiology 11/22/17 22:18 Legionella Urinary Antigen - Final Urine Negative Legionella Antigen Streptococcus pneumoniae Ag Screen - Final Negative S. pneumo Antigen Assess/Plan/Problems-Billing Assessment: 87 yo M h/o afib on eliquis, chronic LBP on fentanyl patch, combine CHF p/w cough/weakness found with RLL PNA with first night complicated by hypoxic respiratory failure - Patient Problems (1) Atrial fibrillation Current Visit: Yes Status: Acute Code(s): I48.91 - UNSPECIFIED ATRIAL FIBRILLATION SNOMED Code(s): 73825254 Comment: eliquis rate controlled on no meds paced rhythm. (2) Pneumonia Current Visit: Yes Status: Acute Code(s): J18.9 - PNEUMONIA, UNSPECIFIED ORGANISM SNOMED Code(s): 359877727 Comment: Not clear if PNA or CHF. Re-start furosemide. Complete 5 day course of azithromycin. (3) Anxiety Current Visit: Yes Status: Acute Code(s): F41.9 - ANXIETY DISORDER, UNSPECIFIED SNOMED Code(s): 51954632 Comment: Family mentioned OCD. I will discuss increasing his sertraline dose with his . (4) COPD (chronic obstructive pulmonary disease) Current Visit: Yes Status: Acute Code(s): J44.9 - CHRONIC OBSTRUCTIVE PULMONARY DISEASE, UNSPECIFIED SNOMED Code(s): 87418337 Comment: Quit smoking over 30 yrs ago. Mometasone/formoterol made him shaky and more nervous. I d/c'd it 11/24. (5) Chronic pain Current Visit: Yes Status: Acute Code(s): G89.29 - OTHER CHRONIC PAIN SNOMED Code(s): 55620907 Comment: He did well on fentnyl 50 mcg/hr q 48 hrs at home, went into withdrawal after naloxone. Increase fentanyl patch to 25 mcg/hr q 48 hr. Status and Disposition: inpatient
[2017-11-24] MEDS ORDERED: LORazepam TAB(*) 0.5 MG PO PRN (10:23)
[2017-11-24] MEDS: Sertraline* 25 MG TAB PO SCH (10:28)
[2017-11-24] MEDS: Tamsulosin CAP* 0.4 MG PO SCH (10:28)
[2017-11-24] MEDS: Apixaban* 5 MG TAB PO SCH (10:28)
[2017-11-24] MEDS: Famotidine TAB* 20 MG PO SCH (10:28)
[2017-11-24] MEDS: Polyethylene Glycol 3350* 17 GM PACKET PO SCH (10:29)
[2017-11-24] MEDS ORDERED: Furosemide TAB* 20 MG PO SCH (11:00)
--- NOTE | 2017-11-24 14:37 | PN ---
Progress Note - Progress Note Date of Service: 11/24/17 Note: Time spent on discharge 60 minutes
--- NOTE | 2017-11-24 14:40 | PN ---
"Progress Note - Progress Note Date of Service: 11/24/17 Note: Search Terms: scotty russell, 1930 Search Date: 11/24/2017 02:38:27 PM The Drug Utilization Report below displays all of the controlled substance prescriptions, if any, that your patient has filled in the last twelve months. The information displayed on this report is compiled from pharmacy submissions to the Department, and accurately reflects the information as submitted by the pharmacies. This report was requested by: Zen Hall | Reference #: [id number] Others' Prescriptions Patient Name: Scotty Russell Date: 1930 Address: [address] [place] [address] Sex: Male Rx Written Rx Dispensed Drug Quantity Days Supply Prescriber Name 09/08/2017 09/28/2017 fentanyl 50 mcg/hr patch 45 90 Lyudmila Chen MD 09/08/2017 09/14/2017 lorazepam 0.5 mg tablet 90 23 Lyudmila Chen MD 06/28/2017 06/29/2017 fentanyl 50 mcg/hr patch 1 2 Lyudmila Chen MD 06/09/2017 06/12/2017 lorazepam 0.5 mg tablet 90 23 Lyudmila Chen MD 03/27/2017 04/03/2017 fentanyl 50 mcg/hr patch 45 90 Lyudmila Chen MD 01/02/2017 01/09/2017 lorazepam 0.5 mg tablet 90 23 Lyudmila Chen MD 12/28/2016 01/02/2017 fentanyl 50 mcg/hr patch 45 90 Lyudmila Chen MD"
[2017-11-24 15:41] VITALS: BP 125/69
--- NOTE | 2017-11-25 12:38 | DS ---
CC: Dr. Chen DISCHARGE SUMMARY: DATE OF ADMISSION: DATE OF DISCHARGE: 11/24 /18 HISTORY OF PRESENT ILLNESS/HOSPITAL COURSE: This 87-year-old man presented with cough, weakness, and malaise. His history is detailed in the admission note. The patient had been declining for about a week. Chest x-ray showed an infiltrate at the right base. He was treated for pneumonia. He did well and he was able to ambulate in the fraga on room air. His oxygen saturation was 96% to 97% on the day of discharge on room air. His appetite is fair. He continued to worry quite a bit about voiding urine and having bowel movements, although he actually does not have a problem, he would get up frequently to go to the bathroom with no results. At home, he took MiraLAX on nearly daily basis and had no problem regulating his bowels. He has been followed by urologist as well on a regular basis with no new recommendations in the recent past. The has requested help at home and the palliative care team and the paraplanner are providing assistance with this. Visiting nurse will come as well. The patient will complete 5-day course of azithromycin. He was treated initially with 1 dose of levofloxacin and ceftriaxone and azithromycin. His fentanyl patch was removed because of his initial hypoxia. He actually was given a dose of naloxone. He had withdrawal symptoms. A patch of 12.5 was put on. I was concerned this was not adequate. A patch of 25 mcg per hour was put on and he will go home with a prescription for the same. I note he uses them every 48 hours, not every 72 hours. FINAL DIAGNOSES: 1. Pneumonia versus congestive heart failure. 2. Chronic pain. 3. Atrial fibrillation. 4. Hypertension. DISCHARGE MEDICATIONS: 1. Azithromycin 250 mg daily for 3 days. 2. Fentanyl patch 25 mcg per hour, change every 48 hours. 3. Calcium carbonate 500 mg daily. 4. Tamsulosin 0.4 mg daily. 5. Triamcinolone 0.1% apply b.i.d. p.r.n. 6. Lorazepam 0.5 mg every 6 hours p.r.n. 7. Trazodone as prescribed 75 mg. 8. Vitamin B12 1000 mcg p.o. daily. 9. Spironolactone/hydrochlorothiazide 25/25 one every Monday, Monday, , Monday and Monday. 10. Sertraline 25 mg daily. 11. Apixaban 5 mg b.i.d. 12. Ranitidine 150 mg daily. 13. Polyethylene glycol 17 g daily. 14. Vitamin D3 1000 units daily. 15. Erythromycin ophthalmic ointment 1 application both eyes at bedtime. 16. Potassium chloride 20 mEq daily. 17. Furosemide 20 mg every Monday and Monday. [id number]/[facility] #: [id number] [facility]
== END 2017-11-24 15:48 | disposition home health service (06) | DRG 291 ==
LOC: ED 20:02 → MED 21:52 → ICU 11-23 06:32 → MEDTELE 11-23 18:23
PROVIDERS: ADMIT Hospitalist; ATTEND Internal Medicine
DX: I11.0 Hypertensive heart disease with heart failure (principal); J18.9 Pneumonia, unspecified organism; I48.92 Unspecified atrial flutter; I44.2 Atrioventricular block, complete; I50.43 Acute on chronic combined systolic (congestive) and diastolic (congestive) heart failure; G89.29 Other chronic pain; I48.91 Unspecified atrial fibrillation; M19.90 Unspecified osteoarthritis, unspecified site; M81.0 Age-related osteoporosis without current pathological fracture; N40.0 Benign prostatic hyperplasia without lower urinary tract symptoms; Z66 Do not resuscitate; K27.9 Peptic ulcer, site unspecified, unspecified as acute or chronic, without hemorrhage or perforation; J44.9 Chronic obstructive pulmonary disease, unspecified; R29.704 NIHSS score 4; M54.5 Low back pain; F41.9 Anxiety disorder, unspecified; E78.00 Pure hypercholesterolemia, unspecified; K21.9 Gastro-esophageal reflux disease without esophagitis; J96.01 Acute respiratory failure with hypoxia; Z98.1 Arthrodesis status; Z95.0 Presence of cardiac pacemaker; Z79.01 Long term (current) use of anticoagulants; Z82.49 Family history of ischemic heart disease and other diseases of the circulatory system; Z87.891 Personal history of nicotine dependence; Z91.013 Allergy to seafood; Z85.828 Personal history of other malignant neoplasm of skin
CPT/HCPCS: 36415; 36600; 70450; 71045; 80048; 80053; 80061; 81003; 81015; 82803; 83605; 83880; 84484; 85025; 85610; 85730; 86850; 86900; 86901; 87040; 87070; 87077; 87086; 87186; 87205; 87899; 93005; 94640; 99284; A9270-GY; J0456; J0696; J1630; J1940; J2060; J2270; J2310